=== PATIENT | female | born 1990 | race African-American/Black ===

== ENCOUNTER 2017-07-15 16:09 | Emergency (ER) | payer MEDICAID ==
[~2017-07-15] VITALS: Ht 170.2 cm; Wt 82.0 kg
[2017-07-15] MEDS ORDERED: PANTOPRAZOLE SODIUM 40 MG/VIAL IV SCH (16:30)
[2017-07-15] MEDS ORDERED: SODIUM CHLORIDE 0.9% 1,000 ML IV ONE (16:30)
[2017-07-15] MEDS ORDERED: ONDANSETRON HCL 4MG/2ML VIAL IV ONE (16:45)
[2017-07-15 17:24] LABS: BASOPHILS % 0.7 % (0.0-2.0); EOSINOPHILS % 1.4 % (0.0-5.0); HEMATOCRIT. 41.7 % (36.0-48.0); LYMPHOCYTES % 12.6 % (20.0-50.0); MEAN CORPUSCULAR HEMOGLOBIN 28.4 pg (28.0-32.0); MEAN CORPUSCULAR VOLUME 84.5 fL (81.0-99.0); MEAN PLATELET VOLUME 7.6 fl (7.4-10.4); MONOCYTES % 7.6 % (2.0-8.0); NEUTROPHILS % 77.7 % (40.0-76.0); PLATELET 287 x1000/uL (130-400); RED BLOOD CELL COUNT 4.94 mill/uL (4.2-5.4); RED CELL DISTRIBUTION WIDTH 14.5 % (11.6-14.6)
[2017-07-15 17:26] LABS: CHLORIDE 107 mEq/L (98-107)
[2017-07-15 17:31] LABS: CARBON DIOXIDE 23 mEq/L (21-32)
[2017-07-15 17:38] LABS: HCG SCREEN NEGATIVE
[2017-07-15 18:55] VITALS: BP 121/71
== END 2017-07-15 20:45 | disposition home or self-care (01) ==
LOC: ER 16:22
DX: K29.00 Acute gastritis without bleeding (principal); Z88.0 Allergy status to penicillin
CPT/HCPCS: 36415; 80053; 83690; 84703; 85025; 96365; 96366; 96375; 99285; C9113; J2405; J7030; Z7610

== ENCOUNTER 2020-02-14 11:56 | Emergency (ER) | payer MEDICAID, OTHER ==
[~2020-02-14] VITALS: Ht 165.1 cm; Wt 91.0 kg
[2020-02-14 12:16] VITALS: BP 114/82
[2020-02-14] MEDS ORDERED: DEXAMETHASONE 4MG TABLET PO ONE (13:00)
[2020-02-14] MEDS ORDERED: IPRATROPIUM/ALBUTEROL 0.5-3(2.5)MG/3ML NEB HHN ONE (13:00)
== END 2020-02-14 14:23 | disposition home or self-care (01) ==
LOC: ER 11:56
DX: J45.901 Unspecified asthma with (acute) exacerbation (principal); Z88.0 Allergy status to penicillin
CPT/HCPCS: 94640; 99283; J8540; Z7610